=== PATIENT | female | born 1945 | race Caucasian/White ===

== ENCOUNTER → 2023-07-12 12:37 | Outpatient (REF) | payer BC, SELFPAY ==
[2023-07-12 13:06] LABS: Urine Albumin Trace (Neg - Trace); Urine Bilirubin Negative (Negative); Urine Character Clear (Clear); Urine Color Yellow; Urine Glucose Negative (Negative); Urine Ketone Negative (Negative); Urine Leukocyte 1+ (Negative); Urine Nitrite Negative (Negative); Urine Occult Blood 2+ (Negative); Urine Specific Gravity 1.015 (<1.030); Urine Urobilinogen Negative (Neg - 1+)
[2023-07-12 14:31] LABS: Urine Mucus Few
[2023-07-12 14:32] LABS: Urine Amorphous Seen; Urine Red Blood Cell 0-2 /HPF (0-2); Urine White Cell 0-2 /HPF (0-5)
== END ==
LOC: OLABPV 12:37
PROVIDERS: ATTENDING PHYSICIAN Family Medicine
DX: Z00.00 Encounter for general adult medical examination without abnormal findings (principal); Z79.899 Other long term (current) drug therapy
CPT/HCPCS: 81003; 81015

== ENCOUNTER → 2023-07-14 11:38 | Outpatient (REF) | payer BC, SELFPAY ==
[2023-07-14 13:13] LABS: % Basophils 0.9 % (0-2); % Eosinophils 5.1 % (0-6); % Immature Granulocytes 0.4 % (0-0.5); % Lymphocytes 27.3 % (20.5-51.1); % Monocytes 12.1 % (1.7-9.3); % Neutrophils 54.2 % (42.2-75.2); Absolute Basophils 0.1 10^3/uL (0-0.2); Absolute Eosinophils 0.3 10^3/uL (0-0.7); Absolute Lymphocytes 1.4 10^3/uL (1.2-3.4); Absolute Monocytes 0.6 10^3/uL (0.1-0.6); Absolute Neutrophils 2.9 10^3/uL (1.4-6.5); Hematocrit 41.3 % (37.0-47.0); Hemoglobin 14.5 g/dL (12.0-16.0); Mean Corp Hgb Conc. 35.1 g/dL (33.0-37.0); Mean Corpuscular Hgb 34.6 pg (27.0-31.0); Mean Corpuscular Volume 98.6 fL (81.0-99.0); Nucleated Red Blood Cells % 0 %; Platelet Count 247 10^3/uL (130-400); Red Blood Cell Count 4.19 10^6/uL (4.20-5.40); Red Cell Dist. Width 11.9 % (11.5-14.5); White Blood Cell Count 5.3 10^3/uL (4.8-10.8)
[2023-07-14 13:46] LABS: Vitamin D, 25-OH*** 62.3 ng/mL (30-80)
[2023-07-14 14:00] LABS: TSH 5.12 uIU/ml (0.47-4.68)
[2023-07-14 14:03] LABS: ALT (SGPT) 22 U/L (0-35); AST (SGOT) 26 U/L (14-36); Albumin 4.2 g/dl (3.5-5.0); Alkaline Phosphatase 86 U/L (38-126); Blood Urea Nitrogen 22 mg/dl (7-17); Calcium 9.7 mg/dl (8.4-10.2); Carbon Dioxide 24 mmol/L (22-30); Chloride 106 mmol/L (98-107); Glucose 117 mg/dl (70-99); HDL Cholesterol 51 mg/dl; LDL Cholesterol, Calculated 58 mg/dl; Potassium 4.4 mmol/L (3.5-5.1); Sodium 137 mmol/L (135-145); Total Bilirubin 0.5 mg/dl (0.2-1.3); Total Cholesterol 129 mg/dl (50-199); Total Protein 6.7 g/dl (6.3-8.2); Triglyceride 102 mg/dl (10-149); Very Low Density Lipoprotein 20 mg/dl (0-30); eGFR 58.39
== END ==
LOC: OLABPV 11:38
PROVIDERS: ATTENDING PHYSICIAN Family Medicine
DX: Z00.00 Encounter for general adult medical examination without abnormal findings (principal); E03.9 Hypothyroidism, unspecified; Z79.899 Other long term (current) drug therapy
CPT/HCPCS: 36415; 80053; 80061; 82306; 84443; 85025

== ENCOUNTER → 2023-10-11 10:37 | Outpatient (REF) | payer BC, SELFPAY ==
[2023-10-11 13:30] LABS: ALT (SGPT) 22 U/L (0-35); AST (SGOT) 29 U/L (14-36); Albumin 4.8 g/dl (3.5-5.0); Alkaline Phosphatase 95 U/L (38-126); Blood Urea Nitrogen 24 mg/dl (7-17); Calcium 10.6 mg/dl (8.4-10.2); Carbon Dioxide 23 mmol/L (22-30); Chloride 103 mmol/L (98-107); Glucose 108 mg/dl (70-99); HDL Cholesterol 67 mg/dl; LDL Cholesterol, Calculated 66 mg/dl; Potassium 4.5 mmol/L (3.5-5.1); Sodium 137 mmol/L (135-145); Total Bilirubin 0.6 mg/dl (0.2-1.3); Total Cholesterol 157 mg/dl (50-199); Total Protein 7.6 g/dl (6.3-8.2); Triglyceride 123 mg/dl (10-149); Very Low Density Lipoprotein 24 mg/dl (0-30); eGFR 58.39
[2023-10-11 13:35] LABS: % Basophils 1.1 % (0-2); % Eosinophils 3.7 % (0-6); % Immature Granulocytes 0.3 % (0-0.5); % Lymphocytes 29.5 % (20.5-51.1); % Monocytes 10.8 % (1.7-9.3); % Neutrophils 54.6 % (42.2-75.2); Absolute Basophils 0.1 10^3/uL (0-0.2); Absolute Eosinophils 0.2 10^3/uL (0-0.7); Absolute Lymphocytes 1.9 10^3/uL (1.2-3.4); Absolute Monocytes 0.7 10^3/uL (0.1-0.6); Absolute Neutrophils 3.5 10^3/uL (1.4-6.5); Hematocrit 42.4 % (37.0-47.0); Hemoglobin 14.8 g/dL (12.0-16.0); Mean Corp Hgb Conc. 34.9 g/dL (33.0-37.0); Mean Corpuscular Hgb 33.4 pg (27.0-31.0); Mean Corpuscular Volume 95.7 fL (81.0-99.0); Nucleated Red Blood Cells % 0 %; Platelet Count 223 10^3/uL (130-400); Red Blood Cell Count 4.43 10^6/uL (4.20-5.40); White Blood Cell Count 6.4 10^3/uL (4.8-10.8)
[2023-10-11 13:47] LABS: Free T4 1.19 ng/dl (0.78-2.19); Vitamin D, 25-OH*** 57.1 ng/mL (30-80)
[2023-10-11 13:47] LABS: Urine Albumin Negative (Neg - Trace); Urine Bilirubin Negative (Negative); Urine Character Clear (Clear); Urine Color Yellow; Urine Glucose Negative (Negative); Urine Ketone Negative (Negative); Urine Leukocyte Trace (Negative); Urine Nitrite Negative (Negative); Urine Occult Blood Negative (Negative); Urine Urobilinogen Negative (Neg - 1+)
[2023-10-11 13:55] LABS: Glycohemoglobin (HgbA1c) 5.9 % (4.0-5.6)
[2023-10-11 14:00] LABS: TSH 8.29 uIU/ml (0.47-4.68)
[2023-10-11 14:02] LABS: Urine Red Blood Cell None Seen /HPF (0-2); Urine Urothelial Cell 0-2 /LPF (FEW)
== END ==
LOC: OLABPV 10:37
PROVIDERS: ATTENDING PHYSICIAN Family Medicine
DX: E03.9 Hypothyroidism, unspecified (principal); M85.80 Other specified disorders of bone density and structure, unspecified site; R73.01 Impaired fasting glucose; R79.89 Other specified abnormal findings of blood chemistry
CPT/HCPCS: 36415; 80053; 80061; 81003; 81015; 82306; 83036; 84439; 84443; 85025

== ENCOUNTER → 2023-12-29 11:25 | Outpatient (REF) | payer BC, SELFPAY ==
[2023-12-29 12:10] LABS: Ionized Calcium 1.18 mMOL/L (1.15-1.33)
[2023-12-29 12:46] LABS: Calcium 9.9 mg/dl (8.4-10.2)
[2023-12-29 13:03] LABS: Free T4 1.32 ng/dl (0.78-2.19)
[2023-12-29 13:17] LABS: TSH 3.68 uIU/ml (0.47-4.68)
== END ==
LOC: OLABPV 11:25
PROVIDERS: ATTENDING PHYSICIAN Family Medicine
DX: E03.9 Hypothyroidism, unspecified (principal); E83.52 Hypercalcemia
CPT/HCPCS: 82330; 83970; 84439; 84443

== ENCOUNTER → 2024-01-02 13:29 | Outpatient (REF) | payer BC, SELFPAY | LOC: WDC 13:29 | PROVIDERS: ATTENDING PHYSICIAN Family Medicine | DX: Z12.31 Encounter for screening mammogram for malignant neoplasm of breast (principal); M85.89 Other specified disorders of bone density and structure, multiple sites | CPT/HCPCS: 77063; 77067; 77080 ==

== ENCOUNTER → 2024-04-03 12:59 | Outpatient (REF) | payer BC, SELFPAY ==
[2024-04-03 13:18] LABS: % Basophils 1.4 % (0-2); % Eosinophils 4.5 % (0-6); % Immature Granulocytes 0.5 % (0-0.5); % Lymphocytes 25.9 % (20.5-51.1); % Monocytes 9.9 % (1.7-9.3); % Neutrophils 57.8 % (42.2-75.2); Absolute Basophils 0.1 10^3/uL (0-0.2); Absolute Eosinophils 0.3 10^3/uL (0-0.7); Absolute Lymphocytes 1.4 10^3/uL (1.2-3.4); Absolute Monocytes 0.6 10^3/uL (0.1-0.6); Absolute Neutrophils 3.2 10^3/uL (1.4-6.5); Hematocrit 40.2 % (37.0-47.0); Hemoglobin 14.1 g/dL (12.0-16.0); Mean Corp Hgb Conc. 35.1 g/dL (33.0-37.0); Mean Corpuscular Hgb 34.1 pg (27.0-31.0); Mean Corpuscular Volume 97.1 fL (81.0-99.0); Mean Platelet Volume 9.3 fL (7.4-10.4); Nucleated Red Blood Cells % 0 %; Platelet Count 211 10^3/uL (130-400); Red Blood Cell Count 4.14 10^6/uL (4.20-5.40); Red Cell Dist. Width 11.9 % (11.5-14.5); White Blood Cell Count 5.5 10^3/uL (4.8-10.8)
[2024-04-03 13:31] LABS: INR 1.02; PT 13.4 Sec (11.4-14.6)
[2024-04-03 14:25] LABS: Blood Urea Nitrogen 16 mg/dl (7-17); Calcium 9.7 mg/dl (8.4-10.2); Carbon Dioxide 26 mmol/L (22-30); Chloride 104 mmol/L (98-107); Glucose 141 mg/dl (70-99); Potassium 4.7 mmol/L (3.5-5.1); Sodium 143 mmol/L (135-145); eGFR > 60.00
[2024-04-03 14:36] LABS: Glycohemoglobin (HgbA1c) 5.7 % (4.0-5.6)
== END ==
LOC: RAD 12:59
PROVIDERS: ATTENDING PHYSICIAN Family Medicine
DX: Z01.818 Encounter for other preprocedural examination (principal); R73.01 Impaired fasting glucose
CPT/HCPCS: 36415; 80048; 83036; 85025; 85610; 85730; 93005

== ENCOUNTER → 2024-08-12 12:38 | Outpatient (REF) | payer BC, MEDICARE, SELFPAY | LOC: RAD 12:38 | PROVIDERS: ATTENDING PHYSICIAN Nurse Practitioner Adult Health | DX: R06.09 Other forms of dyspnea (principal) | CPT/HCPCS: 71046 ==

== ENCOUNTER → 2024-08-19 13:03 | Outpatient (REF) | payer BC, SELFPAY | LOC: HWRAD 13:03 | PROVIDERS: ATTENDING PHYSICIAN Nurse Practitioner Family; FAMILY PHYSICIAN Family Medicine | DX: R93.89 Abnormal findings on diagnostic imaging of other specified body structures (principal); R91.1 Solitary pulmonary nodule | CPT/HCPCS: 71250 ==

== ENCOUNTER 2024-09-04 07:19 | Day surgery (SDC) | payer BC, SELFPAY ==
[2024-08-26 08:52] LABS: Hematocrit 43.4 % (37.0-47.0); Hemoglobin 14.9 g/dL (12.0-16.0); Mean Corp Hgb Conc. 34.3 g/dL (33.0-37.0); Mean Corpuscular Hgb 33.5 pg (27.0-31.0); Mean Corpuscular Volume 97.5 fL (81.0-99.0); Mean Platelet Volume 9.5 fL (7.4-10.4); Platelet Count 227 10^3/uL (130-400); Red Blood Cell Count 4.45 10^6/uL (4.20-5.40); Red Cell Dist. Width 12.3 % (11.5-14.5); White Blood Cell Count 5.3 10^3/uL (4.8-10.8)
[2024-08-26 08:59] LABS: INR 0.94; PT 12.9 Sec (11.4-14.6)
[2024-08-26 09:00] LABS: APTT 30.9 Sec (23.4-35.0)
[2024-08-26 09:21] LABS: Blood Urea Nitrogen 17 mg/dl (7-17); Calcium 10.3 mg/dl (8.4-10.2); Carbon Dioxide 28 mmol/L (22-30); Chloride 106 mmol/L (98-107); Glucose 113 mg/dl (70-99); Potassium 4.4 mmol/L (3.5-5.1); Sodium 140 mmol/L (135-145); eGFR > 60.00
[2024-08-26 14:15] VITALS: BMI 33.9
[2024-09-04 09:23] VITALS: BMI 33.9
[2024-09-04 09:29] VITALS: BP 162/85
[2024-09-04 11:30] VITALS: BP 162/85; BP 173/85
[2024-09-04 11:45] VITALS: BP 167/87
[2024-09-04 12:00] VITALS: BP 168/82
[2024-09-04 12:10] VITALS: BP 166/87
[2024-09-04 12:30] VITALS: BP 154/77
== END 2024-09-04 12:50 | disposition home or self-care (01) ==
LOC: GI 07:19
PROVIDERS: ATTENDING PHYSICIAN Internal Medicine Critical Care Medicine; FAMILY PHYSICIAN Family Medicine
DX: R91.1 Solitary pulmonary nodule (principal); R06.02 Shortness of breath; R91.8 Other nonspecific abnormal finding of lung field; Q85.89 Other phakomatoses, not elsewhere classified; R93.89 Abnormal findings on diagnostic imaging of other specified body structures; J98.4 Other disorders of lung
CPT/HCPCS: 31629; 31628; 31624; 31623; 31627; 31654; 88173; 88305; 71045; 76000; 80048; 85027; 85610; 85730; 87070; 87102; 87116; 87205; 88112; 88333; 93005; 94640; C1887

== ENCOUNTER → 2024-10-22 11:55 | Outpatient (REF) | payer BC, SELFPAY ==
[2024-10-22 13:00] LABS: % Basophils 1.3 % (0-2); % Eosinophils 6.5 % (0-6); % Immature Granulocytes 0.2 % (0-0.5); % Monocytes 15.4 % (1.7-9.3); % Neutrophils 45.6 % (42.2-75.2); Absolute Basophils 0.1 10^3/uL (0-0.2); Absolute Eosinophils 0.3 10^3/uL (0-0.7); Absolute Lymphocytes 1.5 10^3/uL (1.2-3.4); Absolute Monocytes 0.7 10^3/uL (0.1-0.6); Absolute Neutrophils 2.2 10^3/uL (1.4-6.5); Hematocrit 45.2 % (37.0-47.0); Hemoglobin 15.2 g/dL (12.0-16.0); Mean Corp Hgb Conc. 33.6 g/dL (33.0-37.0); Mean Corpuscular Hgb 33.6 pg (27.0-31.0); Nucleated Red Blood Cells % 0 %; Platelet Count 201 10^3/uL (130-400); Red Blood Cell Count 4.52 10^6/uL (4.20-5.40); Red Cell Dist. Width 12.2 % (11.5-14.5); White Blood Cell Count 4.7 10^3/uL (4.8-10.8)
[2024-10-22 13:02] LABS: ALT (SGPT) 28 U/L (0-35); AST (SGOT) 26 U/L (14-36); Albumin 4.6 g/dl (3.5-5.0); Alkaline Phosphatase 75 U/L (38-126); Blood Urea Nitrogen 16 mg/dl (7-17); Calcium 10.2 mg/dl (8.4-10.2); Carbon Dioxide 29 mmol/L (22-30); Chloride 106 mmol/L (98-107); Glucose 122 mg/dl (70-99); HDL Cholesterol 49 mg/dl; LDL Cholesterol, Calculated 77 mg/dl; Potassium 4.6 mmol/L (3.5-5.1); Sodium 141 mmol/L (135-145); Total Bilirubin 0.6 mg/dl (0.2-1.3); Total Cholesterol 153 mg/dl (50-199); Total Protein 7.4 g/dl (6.3-8.2); Triglyceride 138 mg/dl (10-149); Very Low Density Lipoprotein 27 mg/dl (0-30); eGFR > 60.00
[2024-10-22 14:12] LABS: Urine Albumin Negative (Neg - Trace); Urine Bilirubin Negative (Negative); Urine Character Clear (Clear); Urine Color Yellow; Urine Glucose Negative (Negative); Urine Ketone Negative (Negative); Urine Leukocyte Negative (Negative); Urine Nitrite Negative (Negative); Urine Occult Blood Negative (Negative); Urine Specific Gravity 1.015 (<1.030); Urine Urobilinogen Negative (Neg - 1+)
[2024-10-22 14:13] LABS: Glycohemoglobin (HgbA1c) 5.9 % (4.0-5.6)
[2024-10-22 15:00] LABS: Free T4 1.48 ng/dl (0.78-2.19); Vitamin D, 25-OH*** 54.8 ng/mL (30-80)
[2024-10-22 15:14] LABS: Urine Urothelial Cell 0-2 /LPF (FEW)
[2024-10-22 15:14] LABS: TSH 6.13 uIU/ml (0.47-4.68)
[2024-10-22 15:15] LABS: Urine White Cell 0-2 /HPF (0-5)
[2024-10-22 15:16] LABS: Urine Red Blood Cell 0-2 /HPF (0-2)
== END ==
LOC: OLABPV 11:55
PROVIDERS: ATTENDING PHYSICIAN Family Medicine
DX: E03.9 Hypothyroidism, unspecified (principal); E78.2 Mixed hyperlipidemia; G47.33 Obstructive sleep apnea (adult) (pediatric); I10 Essential (primary) hypertension; M85.80 Other specified disorders of bone density and structure, unspecified site; R73.01 Impaired fasting glucose; Z00.00 Encounter for general adult medical examination without abnormal findings; Z79.899 Other long term (current) drug therapy
CPT/HCPCS: 36415; 80053; 80061; 81003; 81015; 82306; 83036; 84439; 84443; 85025

== ENCOUNTER 2024-11-08 08:16 | Emergency (ER) | payer BC, SELFPAY ==
[2024-11-08 08:33] VITALS: BP 148/68
[2024-11-08 08:44] VITALS: BMI 35.9
--- NOTE | 2024-11-08 09:32 | ED.GENMED ---
History of Present Illness
General
Chief Complaint: Musculo-Skeletal Complaint
Source: patient
Exam Limitations: none
Time Seen by Provider: 11/08/24 08:36
Nursing documentation reviewed up to this point in time: agreed with
History of Present Illness
History of Present Illness:
79-year-old female with past medical history of GERD, IBS, hypothyroidism presenting to the emergency department today after twisting her right ankle walking down the stairs at a sporting event yesterday. Has had some difficulty walking since
secondary to pain. Has been able to ambulate. Denies numbness or weakness.
Past History
Past History
ED Past Medical History: GERD, Hypothyroidism and Other (diverticulitis, osteoarthritis)
ED Past Surgical History: Gynecological and Orthopedic
Social History
Tobacco: Non-smoker
Review of Systems
Review of Systems
Allergies reviewed?: Yes
All Other Systems: ROS reviewed and negative except as documented in HPI and ROS
Phy Exam
Physical Exam
Physical Exam:
GENERAL: Alert , in no apparent distress
EYE: pupils equal and reactive
NECK: Supple, no significant adenopathy.
ENT: o/p clr, mmm.
CARDIAC: Regular rate and rhythm .
LUNGS: Clear breath sounds bilaterally, no acute respiratory distress, no wheezes/rales/rhonchi
ABDOMEN: Soft, without focal tenderness, no r/g, no cvat
NEUROLOGICAL: Alert and oriented, no focal neuro deficits
SKIN: Warm and dry, skin intact.
MUSCULOSKELETAL: Right ankle with significant swelling mainly to the lateral aspect of the foot at the base of the foot into the lateral heel region. No tenderness to the lateral malleolus or medial malleolus no tenderness to the midfoot forefoot
or toes. , well perfused.
PSYCH: Normal and appropriate interaction.
Course
Orders/Labs/Results
Orders:
Orders
11/08/24 08:35
Ankle, Right 3 view CR [CR Ankle - Right Min 3 Views *] Urgent
Comment:
Reason For Exam: right ankle pain. twisted ankle yesterday
Vital Signs
Initial and Last Documented VS:
Initial Vital Signs
Temp Pulse Resp BP Pulse Ox
98.1 F 78 16 148/68 98
11/08/24 08:33 11/08/24 08:33 11/08/24 08:33 11/08/24 08:33 11/08/24 08:33
Last Documented Vital Signs
Temp Pulse Resp BP Pulse Ox
98.1 F 78 16 148/68 98
11/08/24 08:33 11/08/24 08:33 11/08/24 08:33 11/08/24 08:33 11/08/24 08:33
MDM/Problems Addressed
MDM/Problems Addressed:
79-year-old female presenting to the emergency department after twisting her ankle yesterday swelling discomfort the lateral aspect of the right foot. X-ray showing potential lateral calcaneal fracture. The case was discussed with orthopedics I
recommended weightbearing as tolerated with a boot and close orthopedic follow-up. Stable for discharge return precautions given.
*Critical Care Note
Total Time (30-74mins, 75-104mins- exclusive of procedures): Not Applicable
ED Attending Note
-
Portions of this chart may have been created with voice recognition software.� Occasional wrong word or��sound alike� substitutions may have occurred due to the inherent limitations of voice recognition software.
Discharge Plan
Departure
Patient Disposition: Home (Routine Discharge)
Date of Disposition: 11/08/24
Time of Disposition: 10:02
Patient with high blood pressure during this ER visit?: No
Condition: Good
Covid-19: Not Applicable
Discharge Problem:
Closed avulsion fracture of calcaneus
Instructions: Avulsion Fracture (DC)
Prescriptions:
No Action
pantoprazole 40 MG tablet,delayed release (DR/EC)
40 mg PO DAILY
calcium citrate-vitamin D3 [Citracal + D Maximum] 1 EACH tablet
2 tab PO BID@1200,1800
Patient Comments:
11/07/18 ss;total of 1260mg of calcium and 1000 iu of Vitamin D
meloxicam 15 mg Tablet
15 mg PO DAILY PRN (Reason: pain)
levothyroxine [Synthroid] 100 mcg Tablet
100 mcg PO DAILY
prednisolone acetate 1 % Drops,Suspension
1 drp LEFT EYE DAILY
prednisolone acetate 1 % Drops,Suspension
1 drp RIGHT EYE TID
timolol maleate 0.5 % Drops
1 drp RIGHT EYE Q12H
glucosamine-chondroitin [Osteo Bi-Flex] 250-200 mg Tablet
2 tab PO QPM
rosuvastatin 5 mg Tablet
5 mg PO QPM
bromfenac 0.09 % Drops
1 drp RIGHT EYE QPM
Referrals:
Jina Lawrence DO [Family Provider, Family Practice]
Kingston Stout MD [Active, Orthopedics]
Activity Restrictions/Additional Instructions:
You came to the emergency department today with concerns of ankle discomfort. You are found have a small avulsion fracture of your calcaneus. Please wear the Ortho boot and weight-bear as tolerated with a walker and follow-up closely with
orthopedics. Return for any worsening, new or concerning symptoms.
Interventions
Interventions:
*Risk Screen - Suicide Last Done: 11/08/24 08:33
*General Assessment Last Done: 11/08/24 08:44
*Neglect/Abuse Screening Last Done: 11/08/24 08:33
*ED- Fall Risk Assessment Last Done: 11/08/24 08:44
*ED COVID-19 Vaccine History Last Done: 11/08/24 08:44
ED-Musculoskeletal Assessment Last Done: 11/08/24 08:44
Discharge Date and Time
Print Language: SYRIAC
== END 2024-11-08 10:15 | disposition home or self-care (01) ==
LOC: EMR 08:16
PROVIDERS: EMERGENCY PHYSICIAN Student in an Organized Health Care Education/Training Program; FAMILY PHYSICIAN Family Medicine
DX: S92.001A Unspecified fracture of right calcaneus, initial encounter for closed fracture (principal); X50.1XXA Overexertion from prolonged static or awkward postures, initial encounter; E03.9 Hypothyroidism, unspecified
CPT/HCPCS: 99283; 73610

== ENCOUNTER → 2025-01-27 15:03 | Outpatient (REF) | payer BC, SELFPAY | LOC: WDC 15:03 | PROVIDERS: ATTENDING PHYSICIAN Family Medicine | DX: Z12.31 Encounter for screening mammogram for malignant neoplasm of breast (principal); Z12.39 Encounter for other screening for malignant neoplasm of breast | CPT/HCPCS: 77063; 77067 ==

== ENCOUNTER → 2025-03-26 09:13 | Outpatient (REF) | payer BC, SELFPAY | LOC: RAD 09:13 | PROVIDERS: ATTENDING PHYSICIAN Internal Medicine Critical Care Medicine; FAMILY PHYSICIAN Family Medicine | DX: R91.1 Solitary pulmonary nodule (principal); Q85.9 Phakomatosis, unspecified; Z87.891 Personal history of nicotine dependence | CPT/HCPCS: 71250 ==

== ENCOUNTER 2025-03-27 06:18 | Day surgery (SDC) | payer BC, SELFPAY | END 2025-03-27 10:48 | disposition home or self-care (01) | LOC: GI 06:18 | PROVIDERS: ATTENDING PHYSICIAN Internal Medicine | DX: Z12.11 Encounter for screening for malignant neoplasm of colon (principal); K57.30 Diverticulosis of large intestine without perforation or abscess without bleeding; K31.7 Polyp of stomach and duodenum; K44.9 Diaphragmatic hernia without obstruction or gangrene; K29.70 Gastritis, unspecified, without bleeding; K22.89 Other specified disease of esophagus; K22.70 Barrett's esophagus without dysplasia; K31.89 Other diseases of stomach and duodenum; Z86.0100 Personal history of colon polyps, unspecified | CPT/HCPCS: 43239; G0105; 88305; 88342 ==

== ENCOUNTER → 2025-04-04 10:39 | Outpatient (REF) | payer BC, SELFPAY ==
[2025-04-04 11:50] LABS: Hematocrit 42.8 % (37.0-47.0); Hemoglobin 14.2 g/dL (12.0-16.0); Mean Corp Hgb Conc. 33.2 g/dL (33.0-37.0); Mean Corpuscular Volume 102.6 fL (81.0-99.0); Nucleated Red Blood Cells % 0 %; Platelet Count 217 10^3/uL (130-400); Red Cell Dist. Width 12.4 % (11.5-14.5)
[2025-04-04 12:30] LABS: TSH 3.78 uIU/ml (0.47-4.68)
== END ==
LOC: OLABPV 10:39
PROVIDERS: ATTENDING PHYSICIAN Family Medicine
DX: R79.89 Other specified abnormal findings of blood chemistry (principal); E03.9 Hypothyroidism, unspecified
CPT/HCPCS: 36415; 84439; 84443; 85025